=== PATIENT | male | born 1980 | race Caucasian/White ===

== ENCOUNTER 2019-07-02 20:23 | Emergency (ER) | payer BC ==
[2019-07-02 20:31] VITALS: BP 159/83
--- NOTE | 2019-07-02 21:20 | UC ---
Throat Pain/Nasal Don HPI - HPI Summary HPI Summary: Patient is a 39yo male presenting with nasal congestion, sore throat, and head pressure x3 days. Also notes cough minimally productive of clear sputum. Patient notes he started getting a fever tonight of 100 and took tylenol which brought it down. Notes losing voice some that started today. Notes headaches and body aches. Denies SOB and wheezing. Denies n/v/d. States his daughter had similar symptoms over a week ago and was diagnosed with sinus infection. Denies h/o asthma and other lung issues. - History of Current Complaint Chief Complaint: UCGeneralIllness Stated Complaint: URI Hx Obtained From: Patient Onset/Duration: Gradual Onset, Lasting Days Severity: Mild Pain Intensity: 2 Pain Scale Used: 0-10 Numeric - Allergies/Home Medications Allergies/Adverse Reactions: Allergies Allergy/AdvReac Type Severity Reaction Status Date / Time carbinoxamine [From [facility]] Allergy Unknown Unknown Verified 07/02/19 20:31 Reaction Details Penicillins Allergy Unknown Unknown Verified 07/02/19 20:31 Reaction Details pseudoephedrine [From [facility]] Allergy Unknown Unknown Verified 07/02/19 20:31 Reaction Details Sulfa (Sulfonamide Allergy Unknown Unknown Verified 07/02/19 20:31 Antibiotics) Reaction Details Home Medications: Home Medications Acetaminophen [APAP] 650 mg PO ONCE 07/02/19 [History Confirmed 07/02/19] PMH/Surg Hx/FS Hx/Imm Hx Previously Healthy: Yes - Surgical History Surgical History: Yes Surgery Procedure, Year, and Place: hernia. hemm - Family History Known Family History: Positive: Non-Contributory - Social History Occupation: Employed Full-time Lives: With Family Alcohol Use: Occasionally Substance Use Type: Marijuana Smoking Status (MU): Never Smoked Tobacco Review of Systems All Other Systems Reviewed And Are Negative: Yes Constitutional: Positive: Fever - 100, Chills ENT: Positive: Sore Throat, Nasal Discharge - PND, Sinus Congestion. Negative: Ear Ache, Sinus Pain/Tenderness Respiratory: Positive: Cough - clear sputum. Negative: Shortness Of Breath Cardiovascular: Positive: Negative Gastrointestinal: Positive: Negative Musculoskeletal: Positive: Myalgia Neurological: Positive: Headache Physical Exam Triage Information Reviewed: Yes Appearance: Well-Appearing, No Pain Distress, Well-Nourished Vital Signs: Initial Vital Signs Temp 98.3 F 07/02/19 20:27 Pulse 71 07/02/19 20:27 Resp 18 07/02/19 20:27 BP 159/83 07/02/19 20:27 Pulse Ox 99 07/02/19 20:27 Lab Results 07/02/19 Range/Units 21:32 Influenza A (Rapid) Negative (Negative) Influenza B (Rapid) Negative (Negative) Vital Signs Reviewed: Yes Eyes: Positive: Conjunctiva Clear ENT: Positive: Hearing grossly normal, Pharynx normal, Nasal drainage - PND, TMs normal, Hoarse voice, Uvula midline. Negative: Nasal congestion, Tonsillar swelling, Tonsillar exudate, Sinus tenderness Neck exam: Normal Neck: Positive: Supple, Nontender, No Lymphadenopathy Respiratory Exam: Normal Respiratory: Positive: Lungs clear, Normal breath sounds, No respiratory distress Cardiovascular Exam: Normal Cardiovascular: Positive: RRR. Negative: Tachycardia Neurological: Positive: Alert Psychological: Positive: Age Appropriate Behavior Skin Exam: Normal Throat Pain/Nasal Course/Dx - Course Course Of Treatment: Negative rapid flu test. Discussed viral illness and to continue with symptomatic treatment. Instructed to follow up with PCP for persistent symptoms and to return or go to ED with new or worsening symptoms. Patient voiced understanding and agreed with treatment plan. - Differential Dx/Diagnosis Differential Diagnosis/HQI/PQRI: Pharyngitis, Sinusitis, URI Provider Diagnosis: Flu-like symptoms Discharge ED - Sign-Out/Discharge Documenting (check all that apply): Patient Departure All imaging exams completed and their final reports reviewed: No Studies - Discharge Plan Condition: Stable Disposition: HOME Patient Education Materials: Viral Syndrome (ED) Referrals: Mathew Tripathi [employer] ENGINEER [Primary Care Provider] - If Needed Additional Instructions: As discussed, your rapid flu test was negative today. Your symptoms are likely caused by a different virus and should resolve on their own with time. You may continue to take ibuprofen and/or tylenol for fever and pain relief. A nasal saline spray or Flonase may help alleviate nasal congestion. Throat lozenges, throat sprays, and tea with honey may help relieve sore throat. A humidifier at night or hot steam from a shower may also help relieve symptoms. Follow up with your PCP if symptoms do not resolve within 7 days. Return or go to ED with any new or worsening symptoms. - Billing Disposition and Condition Condition: STABLE Disposition: Home
[2019-07-02 21:44] LABS: Influenza A Molecular NEGATIVE (Negative); Influenza B Molecular NEGATIVE (Negative)
== END 2019-07-02 21:58 | disposition home or self-care (01) ==
LOC: UCEAST 20:23
DX: R09.81 Nasal congestion (principal); J02.9 Acute pharyngitis, unspecified; R05 Cough; M79.10 Myalgia, unspecified site; R51 Headache; Z88.8 Allergy status to other drugs, medicaments and biological substances; Z88.0 Allergy status to penicillin; Z88.2 Allergy status to sulfonamides; R09.82 Postnasal drip
CPT/HCPCS: 99211; G0463